=== PATIENT | male | born 1945 | race Caucasian/White ===

== ENCOUNTER 2023-10-11 05:57 | Inpatient (IN) | payer MEDICARE ==
[2023-10-11] MEDS ORDERED: MORPHINE SULFATE 4 MG/ML SYRINGE IV PRN (06:19)
[2023-10-11] MEDS ORDERED: ONDANSETRON 4 MG/2 ML VIAL IVP PRN (06:19)
[2023-10-11] MEDS ORDERED: NALOXONE 0.4 MG/ML 1 ML VIAL IV PRN (06:19)
[2023-10-11] MEDS ORDERED: AMPICILLIN-SULBACTAM 3 GM in SODIUM CHLORIDE 0.9% 100 ML IVPB STA (06:22)
--- NOTE | 2023-10-11 06:24 | ED ---
Recheck HPI - General Chief Complaint: Recheck/Abnormal Lab/Rx Stated Complaint: Free Air in Abdomen, COVID+ Time Seen by Provider: 10/11/23 06:03 Source: EMS, RN notes reviewed, old records reviewed Mode of arrival: EMS - History of Present Illness Initial Comments: This is a 77-year-old male accepted in transfer from [facility] evaluation of pneumoperitoneum likely related to perforation of diverticulitis patient was a presented to [facility] with abdominal pain MD Complaint: needs IV antibiotics, other (Patient needs surgical evaluation secondary to abdominal pain) Returns Today for: needs IV antibiotics, persistent/worsening pain related to initial visit Context: planned re-check Associated Symptoms: none Treatments Prior to Arrival: Given Antibiotics on, Given Pain Meds on - Related Data Home Medications Medication Instructions Recorded Confirmed Alfuzosin HCl [Alfuzosin HCl ER] 10 mg PO PC-LUNCH 10/11/23 10/11/23 Allergies Allergy/AdvReac Type Severity Reaction Status Date / Time No Known Allergies Allergy Verified 10/11/23 07:16 Review of Systems ROS Statement: Those systems with pertinent positive or pertinent negative responses have been documented in the HPI. ROS Other: All systems not noted in ROS Statement are negative. Past Medical History Past Medical History: No Reported History History of Any Multi-Drug Resistant Organisms: None Reported Past Surgical History: No Surgical Hx Reported Past Psychological History: No Psychological Hx Reported Smoking Status: Never smoker Past Alcohol Use History: None Reported Past Drug Use History: None Reported General Exam General appearance: alert, in no apparent distress Head exam: Present: atraumatic, normocephalic, normal inspection Eye exam: Present: normal appearance, PERRL, EOMI. Absent: scleral icterus, conjunctival injection, periorbital swelling ENT exam: Present: normal exam, mucous membranes moist Neck exam: Present: normal inspection. Absent: tenderness, meningismus, lymphadenopathy Respiratory exam: Present: normal lung sounds bilaterally. Absent: respiratory distress, wheezes, rales, rhonchi, stridor Cardiovascular Exam: Present: regular rate, normal rhythm, normal heart sounds. Absent: systolic murmur, diastolic murmur, rubs, gallop, clicks GI/Abdominal exam: Present: soft, normal bowel sounds. Absent: distended, tenderness, guarding, rebound, rigid Extremities exam: Present: normal inspection, full ROM, normal capillary refill. Absent: tenderness, pedal edema, joint swelling, calf tenderness Back exam: Present: normal inspection Neurological exam: Present: alert, oriented X3, CN II-XII intact Psychiatric exam: Present: normal affect, normal mood Skin exam: Present: warm, dry, intact, normal color. Absent: rash Course Vital Signs 10/11/23 10/11/23 10/11/23 06:00 07:49 08:00 Temperature 98.1 F 97.8 F Pulse Rate 77 73 73 Respiratory 18 20 16 Rate Blood Pressure 110/57 96/50 160/90 O2 Sat by Pulse 99 96 98 Oximetry 10/11/23 10/11/23 10/11/23 10:00 11:00 13:00 Temperature Pulse Rate 80 76 83 Respiratory 20 16 17 Rate Blood Pressure 140/80 134/61 129/59 O2 Sat by Pulse 98 98 96 Oximetry 10/11/23 14:20 Temperature Pulse Rate 78 Respiratory 18 Rate Blood Pressure 133/61 O2 Sat by Pulse 98 Oximetry - Reevaluation(s) Reevaluation #1: 10/11/23 06:40 Records reviewed Transferring paperwork is reviewed Reevaluation #2: 10/11/23 06:40 Patient has no complaints Reevaluation #3: 10/11/23 06:40 Patient informed results and questions answered Reevaluation #4: 10/11/23 06:24 Was pt. sent in by a medical professional or institution (Dr. PA, LAB SYSTEMS ANALYST, urgent care, hospital, or longterm...) When possible be specific @ -no Did you speak to anyone other than the patient for history (EMS, parent, family, police, friend...)? What history was obtained from this source @ -no Did you review nursing and triage notes (agree or disagree)? Why? @ -agree Are old charts reviewed (outside hosp., previous admission, EMS record, old EKG, old radiological studies, urgent care reports/EKG's, longterm records)? Rep ort findings @ -yes Differential Diagnosis (chest pain, altered mental status, abdominal pain women, abdominal pain men, vaginal bleeding, weakness, fever, dyspnea, syncope, headache, dizziness, GI bleed, back pain, seizure, CVA, palpatations, mental health, musculoskeletal)? @ -prior EKG interpreted by me (3pts min.). @ -yes X-rays interpreted by me (1pt min.). @ -no CT interpreted by me (1pt min.). @ -yes diverticulitis with pneumoperitoneum U/S interpreted by me (1pt. min.). @ -no What testing was considered but not performed or refused? (CT, X-rays, U/S, labs)? Why? @ -none What meds were considered but not given or refused? Why? @ -none Did you discuss the management of the patient with other professionals (professionals i.e. , PA, LAB SYSTEMS ANALYST, lab, RT, psych nurse, social service worker, weight loss consultant, teacher, driver license reviewing officer, family independence case manager)? Give summary @ -Yes case was discussed with general surgery Was smoking cessation discussed for >3mins.? @ -no Was critical care preformed (if so, how long)? @ -no Were there social determinants of health that impacted care today? How? (Homelessness, low income, unemployed, alcoholism, drug addiction, transportation, low edu. Level, literacy, decrease access to med. care, halfway, rehab)? @ -none Was there de-escalation of care discussed even if they declined (Discuss DNR or withdrawal of care, Hospice)? DNR status @ -no What co-morbidities impacted this encounter? (DM, HTN, Smoking, COPD, CAD, Cancer, CVA, ARF, Chemo, Hep., AIDS, mental health diagnosis, sleep apnea, morbid obesity)? @ -none Was patient admitted / discharged? Hospital course, mention meds given and route, prescriptions, significant lab abnormalities, going to OR and other pertinent info. @ - 77 male to the ER for evaluation, patient is accepted the transfer from [facility] for pneumoperitoneum likely related to diverticulitis, Patient was transferred for abdominal pain and surgical evaluation and treatment. Patient has pain control currently Admitted Undiagnosed new problem with uncertain prognosis? @ -no Drug Therapy requiring intensive monitoring for toxicity (Heparin, Nitro, Insulin, Cardizem)? @ -no Were any procedures done? @ -no Diagnosis/symptom? @ -Diverticulitis with perforation Acute, or Chronic, or Acute on Chronic? @ -Acute Uncomplicated (without systemic symptoms) or Complicated (systemic symptoms)? @ -Complicated Side effects of treatment? @ -no Exacerbation, Progression, or Severe Exacerbation? @ -exacerbation Poses a threat to life or bodily function? How? (Chest pain, USA, ND, pneumonia, PE, COPD, DKA, ARF, appy, cholecystitis, CVA, Diverticulitis, Homicidal, Suicidal, threat to staff... and all critical care pts) @ -yes with significant bowel infection Reevaluation #5: 10/11/23 06:41 Differential Abdominal Pain Men: Appendicitis, cholecystitis, diverticulosis, ischemic bowel, pancreatitis, hepatitis, UTI, gastroenteritis, AAA, incarcerated hernia, bowel obstruction, constipation, inflammatory bowel, hepatitis, peptic ulcer disease, splenic infarction, perforated viscus, testicular torsion, this is not meant to be an all-inclusive list - Consultations Consultation #1: spoke with Dr. Mario who agrees to accept patient for admission Medical Decision Making - Medical Decision Making 77 male to the ER for evaluation, patient is accepted the transfer from [facility] for pneumoperitoneum likely related to diverticulitis, Patient was transferred for abdominal pain and surgical evaluation and treatment. Patient has pain control currently - Lab Data Result diagrams: 10/11/23 08:31 10/11/23 08:31 Disposition Clinical Impression: Diverticulitis, Pneumoperitoneum, Abdominal pain Disposition: ADMITTED IP TO THIS HOSP Condition: Stable Is patient prescribed a controlled substance at d/c from ED?: No Time of Disposition: 06:30
[2023-10-11] MEDS: SODIUM CHLORIDE 0.9% 1,000 ML IV SCH ×2 (06:41→13:25)
[2023-10-11 08:31] VITALS: TEMP 97.8
[2023-10-11 09:03] LABS: ALT 18 U/L (4-49); AST 23 U/L (17-59); African American GFR (CKD) 81 (>60 ml/min/1.73 sqM); Albumin 3.3 g/dL (3.5-5.0); Albumin/Globulin Ratio 1.1; Alkaline Phosphatase 73 U/L (38-126); Anion Gap 13 mmol/L; Blood Urea Nitrogen 24 mg/dL (9-20); Calcium 8.6 mg/dL (8.4-10.2); Carbon Dioxide 22 mmol/L (22-30); Chloride 101 mmol/L (98-107); Glucose 114 mg/dL (74-99); Non-African American GFR(CKD) 70 (>60 ml/min/1.73 sqM); Potassium 4.2 mmol/L (3.5-5.1); Sodium 136 mmol/L (137-145); Total Bilirubin 0.9 mg/dL (0.2-1.3); Total Protein 6.3 g/dL (6.3-8.2)
[2023-10-11] MEDS ORDERED: IOPAMIDOL CONTRAST (ORAL USE) VIAL PO PRN (09:17)
[2023-10-11 09:21] LABS: HGB 11.1 gm/dL (13.0-17.5); MCH 28.2 pg (25.0-35.0); MCHC 33.7 g/dL (31.0-37.0); MCV 83.5 fL (80.0-100.0); Mean Platelet Volume 9.5; Platelet Count 229 k/uL (150-450); RBC 3.95 m/uL (4.30-5.90); RDW 15.4 % (11.5-15.5); WBC 20.2 k/uL (3.8-10.6)
[2023-10-11 09:45] LABS: Band Neutrophils % 11 %; Lymphocytes # (M) 1.01 k/uL (1.0-4.8); Metamyelocytes % 1 %; Monocytes # (M) 1.82 k/uL (0-1.0); Myelocytes % 1 %; Neutrophils % (M) 74 %; Nucleated Red Blood Cells 0 /100 WBC (0-0); Total Cells Counted 200
[2023-10-11 09:46] LABS: RBC Morphology Normal; Toxic Vacuolation Present
--- NOTE | 2023-10-11 11:39 | P.GSHP ---
History of Present Illness H&P Date: 10/11/23 CHIEF COMPLAINT: Abdominal pain HISTORY OF PRESENT ILLNESS: This is a 77-year-old male who presented with abdominal pain that has been present for about 2 weeks. Over the last day he has had increased and abdominal pain. He initially presented to [facility] and had computed tomography scan abdomen and pelvis that had shown pneumoperitoneum likely related to perforation of diverticulitis. Patient's abdomen is tense with pain in the upper abdomen. Patient reports that he had been vomiting a lot yesterday. He reports having bowel movements. He feels feverish with chills. He was diagnosed with cold on Saturday. He initially was rating his pain about a 7 out of 10. Computed tomography scan of chest and abdomen reviewed by surgeon and radiologist. There is air noted in the medias tinum. 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 Patient will need to be evaluated by cardiothoracic surgeon. PAST MEDICAL HISTORY: See below PAST SURGICAL HISTORY: See below MEDICATIONS: See below ALLERGIES: See below SOCIAL HISTORY: No illicit drug use. REVIEW OF SYSTEMS: CONSTITUTIONAL: Denies fever or chills. HEENT: Denies blurred vision, vision changes, or eye pain. Denies hemoptysis CARDIOVASCULAR: Denies chest pain or pressure. RESPIRATORY: No shortness of breath. GASTROINTESTINAL: See HPI for pertinent findings HEMATOLOGIC: Denies bleeding disorders. GENITOURINARY: Denies any blood in urine or increased urinary frequency. SKIN: Denies pruitis. Denies rash. PHYSICAL EXAM: VITAL SIGNS: Reviewed GENERAL: Well-developed in no acute distress. HEENT: No sclera icterus. Extraocular movements grossly intact. Moist buccal mucosa. Head is atraumatic, normocephalic. No nasal drainage. ABDOMEN: Abdomen tense with diffuse pain but more tender in the upper epigastri c and left lower abdomen. NEUROLOGIC: Alert and oriented. Cranial nerves II through XII grossly intact. LABORATORY DATA: WBC 20.2 hgb 11.1 and platelets 229 Sodium 136 potassium 4.2 creatinine 1.02 IMAGING: Computed tomography scan of chest and abdomen pending Abdominal x-ray pending ASSESSMENT: 1. 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 Pneumoperitoneum 3. Abdominal pain PLAN: -Patient had free air noted under the mediastinum on computed tomography scan of the chest. There are concerns for possible esophageal perforation. Patient will require higher level of care and to be evaluated by cardiothoracic surgeon. Working on transferring patient to [facility]. Physician Tur[employer] And Grounds Supervisor note has been reviewed by physician. Signing provider agrees with the documented findings, assessment, and plan of care. I have personally seen and examined the patient, reviewed the TEXTILE CLOTHING AND FOOTWEAR MECHANIC /PAs history, exam and MDM and agree with the assessment and plan as written. Based on total visit time, I have performed more than 50% of the visit. As above: Patient transferred for initially suspected diverticulitis with perforation. Reviewed films with our radiologist here locally this morning. Initial CAT scan abdomen shows the majority of the air is in the left upper quadrant epigastric region. There is a larger than anticipated collection of air in the mediastinum. Following that a CT of the chest and abdomen with oral contrast was ordered to evaluate for extravasation. None was seen. Air was noted by radiology extending adjacent to the esophagus up towards the shauna. The patient does describe significant vomiting yesterday. I'm concerned about the possibility of esophageal perforation and would prefer to have thoracic surgery backup. This may end up representing a proximal perforated gastric ulcer. Other CAT scan findings including suspicious iliac chain adenopathy and lytic bone lesions noted as well. These findings were discussed with the patient and also his by phone. This case was discussed with [facility] Dr. Blank who accepted transfer for higher level of care. Arrangements are being finalized for transfer at this time. Continue antibiotics. Past Medical History Past Medical History: No Reported History History of Any Multi-Drug Resistant Organisms: None Reported Past Surgical History: No Surgical Hx Reported Past Psychological History: No Psychological Hx Reported Smoking Status: Never smoker Past Alcohol Use History: None Reported Past Drug Use History: None Reported Medications and Allergies Home Medications Medication Instructions Recorded Confirmed Type Alfuzosin HCl [Alfuzosin HCl ER] 10 mg PO PC-LUNCH 10/11/23 10/11/23 History Allergies Allergy/AdvReac Type Severity Reaction Status Date / Time No Known Allergies Allergy Verified 10/11/23 07:16 Surgical - Exam Vital Signs Temp Pulse Resp BP Pulse Ox 98.1 F 77 18 110/57 99 10/11/23 06:00 10/11/23 06:00 10/11/23 06:00 10/11/23 06:00 10/11/23 06:00 Results - Labs 10/11/23 08:31 10/11/23 08:31 Abnormal Lab Results - Last 24 Hours (Table) 10/11/23 12 Range/Units 08:31 08:31 WBC 20.2 H (3.8-10.6) k/uL RBC 3.95 L (4.30-5.90) m/uL Hgb 11.1 L (13.0-17.5) gm/dL Hct 33.0 L (39.0-53.0) % Neutrophils # (Manual) 17.10 H (1.3-7.7) k/uL Monocytes # (Manual) 1.82 H (0-1.0) k/uL Metamyelocytes # (Man) 0.20 H (0) k/uL Myelocytes # (Manual) 0.20 H (0) k/uL Sodium 136 L (137-145) mmol/L BUN 24 H (9-20) mg/dL Glucose 114 H (74-99) mg/dL Albumin 3.3 L (3.5-5.0) g/dL Diabetes panel 10/11/23 Range/Units 08:31 Sodium 136 L (137-145) mmol/L Potassium 4.2 (3.5-5.1) mmol/L Chloride 101 (98-107) mmol/L Carbon Dioxide 22 (22-30) mmol/L BUN 24 H (9-20) mg/dL Creatinine 1.02 (0.66-1.25) mg/dL Glucose 114 H (74-99) mg/dL Calcium 8.6 (8.4-10.2) mg/dL AST 23 (17-59) U/L ALT 18 (4-49) U/L Alkaline Phosphatase 73 (38-126) U/L Total Protein 6.3 (6.3-8.2) g/dL Albumin 3.3 L (3.5-5.0) g/dL Calcium panel 10/11/23 Range/Units 08:31 Calcium 8.6 (8.4-10.2) mg/dL Albumin 3.3 L (3.5-5.0) g/dL Pituitary panel 10/11/23 Range/Units 08:31 Sodium 136 L (137-145) mmol/L Potassium 4.2 (3.5-5.1) mmol/L Chloride 101 (98-107) mmol/L Carbon Dioxide 22 (22-30) mmol/L BUN 24 H (9-20) mg/dL Creatinine 1.02 (0.66-1.25) mg/dL Glucose 114 H (74-99) mg/dL Calcium 8.6 (8.4-10.2) mg/dL Adrenal panel 10/11/23 Range/Units 08:31 Sodium 136 L (137-145) mmol/L Potassium 4.2 (3.5-5.1) mmol/L Chloride 101 (98-107) mmol/L Carbon Dioxide 22 (22-30) mmol/L BUN 24 H (9-20) mg/dL Creatinine 1.02 (0.66-1.25) mg/dL Glucose 114 H (74-99) mg/dL Calcium 8.6 (8.4-10.2) mg/dL Total Bilirubin 0.9 (0.2-1.3) mg/dL AST 23 (17-59) U/L ALT 18 (4-49) U/L Alkaline Phosphatase 73 (38-126) U/L Total Protein 6.3 (6.3-8.2) g/dL Albumin 3.3 L (3.5-5.0) g/dL
[2023-10-11] MEDS ORDERED: AMPICILLIN-SULBACTAM 3 GM in SODIUM CHLORIDE 0.9% 100 ML IVPB SCH (12:00)
--- NOTE | 2023-10-11 12:03 | XR ---
EXAMINATION TYPE: XR abdomen 2V DATE OF EXAM: 10/11/2023 COMPARISON: Outside CT 10/11/2023 HISTORY: 77-year-old male with abdominal pain FINDINGS: Lung bases are clear. Small amount of free air below the left hemidiaphragm. Excreting contrast within the renal collecting systems and right ureter as well as the bladder. Some surgical clips an the region of the prostate gland. Marked abnormal soft tissue in the region of the prostate gland on outside CT. Correlate to exclude prostate cancer recurrence. No dilated small bowel. No significant stool burden. IMPRESSION: 1. Small amount of free air below the left hemidiaphragm. Findings suggest gastric perforation as see n on outside CT. 2. Surgical clips in the region of the prostate gland. Given the prominent abnormal soft tissue here on the patient's outside CT, correlate to exclude recurrent prostate cancer.
--- NOTE | 2023-10-11 13:42 | P.DS ---
Providers Date of admission: 10/11/23 06:19 Expected date of discharge: 10/11/23 Attending physician: Juan Diego Mario Consults: 10/11/23 06:19 Consult Physician Routine Consulting Provider: Talat Robles Consult Reason/Comments: [employer] Do you want consulting provider notified?: Yes Primary care physician: Stated None Hospital Course: Discharge diagnosis 1. 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 Pneumoperitoneum 3. Abdominal pain Hospital course This is a 77-year-old male who presented with abdominal pain that has been present for about 2 weeks. Over the last day he has had increased and abdominal pain. He initially presented to [facility] and had computed tomography scan abdomen and pelvis that had shown pneumoperitoneum likely related to perforation of diverticulitis. Patient's abdomen is tense with pain in the upper abdomen. Patient reports that he had been vomiting a lot yesterday. He reports having bowel movements. He feels feverish with chills. He was diagnosed with cold on Saturday. He initially was rating his pain about a 7 out of 10. Computed tomography scan of chest and abdomen reviewed by surgeon and radiologist. There is air noted in the mediastinum. 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 There are concerns for possible esophageal perforation. Patient will require higher level of care and to be evaluated by cardiothoracic surgeon. Patient will be transferred to [facility] for higher level of care and to be evaluated by cardiothoracic surgeon. Physician Tire Mounter note has been reviewed by physician. Signing provider agrees with the documented findings, assessment, and plan of care. Patient Condition at Discharge: Stable Plan - Discharge Summary New Discharge Prescriptions: No Action Alfuzosin HCl [Alfuzosin HCl ER] 10 mg PO PC-LUNCH Discharge Medication List Alfuzosin HCl [Alfuzosin HCl ER] 10 mg PO PC-LUNCH 10/11/23 [History] Follow up Appointment(s)/Referral(s): None,Stated [Primary Care Provider] - 1-2 days Activity/Diet/Wound Care/Special Instructions: Patient being transferred to [facility] Discharge Disposition: OTHER INSTITUTION NOT DEFINED
[2023-10-11 14:39] VITALS: BP 133/61; PULSE 78; RESP 18
--- NOTE | 2023-10-11 16:06 | CT ---
EXAMINATION TYPE: CT chest abdomen wo con CT DLP: 489.2 mGycm, Automated exposure control for dose reduction was used. DATE OF EXAM: 10/11/2023 10:11 AM COMPARISON: None. CLINICAL INDICATION:Male, 77 years old with history of Evaluate possible gastroesophageal perforation ; [facility], ESOPHAGEAL PERF? TECHNIQUE: Axial images through the chest and abdomen were obtained without contrast. Oral contrast w as given. Two-dimensional coronal and sagittal reconstructions were obtained. Contrast used: mL of , Oral contrast used: with Oral Contrast Findings: CHEST: LUNGS/ PLEURA: Mild scarring/senescent changes in the lungs. No acute infiltrate, pleural effusion, o r pneumothorax. AIRWAY: Central airways are patent. HEART/VASCULATURE: Heart size upper limits of normal. Calcifications of the aortic valve, aorta, shereen nary arteries..Moderate calcification of the aorta and major branches. No pericardial effusion. MEDIASTINUM: Mildly enlarged lymph nodes in the AP window, up to 16 mm. Other nonenlarged nodes are a lso seen. To the right of the distal esophagus, there is a gas and fluid containing structure seen me asuring 3.2 x 2.3 cm axially and extends 4.5 cm craniocaudally, with suggestion of a few additional s cattered tiny foci of pneumomediastinum. No abnormal contrast is seen in the mediastinum. SOFT TISSUES/LYMPH NODES: Unremarkable. LOWER NECK: No significant findings. ABDOMEN: Limitation by the delayed postcontrast scan obtained. ABDOMEN LIVER: Unremarkable GALLBLADDER AND BILE DUCTS: Unremarkable. PANCREAS: Unremarkable. SPLEEN: Unremarkable. ADRENAL GLANDS: Unremarkable. KIDNEYS: Kidneys are both excreting contrast. No hydronephrosis on the left. There is a prominent rig ht extrarenal pelvis with relatively abrupt decrease in caliber noted at the ureteropelvic junction, which could indicate UPJ stenosis. Within a dilated lower pole calyx, there is a radiodense focus see n within the contrast measuring about 7.2 mm, concerning for nonobstructing calcification. STOMACH AND BOWEL: Mild thickening of the distal esophagus, and probably the stomach. This could be a t least in part due to incomplete distention. There is contrast seen within the stomach and some of t he visualized small bowel loops without evidence of obstruction. PERITONEUM/RETROPERITONEUM: Multiple small foci of pneumoperitoneum, adjacent to the liver and IVC, a nd several throughout the peritoneal fat in the abdomen. Mild diffuse hazy appearance of the abdomina l mesentery, may represent edema. VASCULATURE: Moderate vascular calcification of the abdominal aorta and branches, no evidence of AAA. MUSCULOSKELETAL (chest and abdomen): Moderate degenerative changes of the SI joints and lumbar spine. This appears most progressed at L4-L5 where predominantly disc osteophyte complex causes mild/modera te canal and neural foraminal stenoses. Lytic lesion at T3 appears to replace approximately two thirds of the vertebral body without evidence of vertebral body height loss. Partially seen lytic lesion involving the right C3 vertebral body and pedicle concerning for metastasis. Also small ovoid lesion near the left lamina and base of spinous process at C4. Several small lytic foci appear present throughout the lumbar spine, some which could be degenerative but others have the appearance of lytic lesions. There is a small lytic lesion in the mid body of the sternum. Lytic lesion right iliac wing measures 1.5 cm. Small lytic lesions are seen in the right scapular wing and near the left bony glenoid. LYMPH NODES: No gross evidence for lymphadenopathy. SOFT TISSUE/ABDOMINAL WALL: Unremarkable IMPRESSION: 1. Gas and fluid containing collection outside the distal esophagus towards the right, concerning fo r contained perforation. 2. A few small foci of additional pneumomediastinum are also present, and there is some pneumoperito neum in the upper abdomen, likely related to tracking from this. 3. Diffuse haziness of the abdominal mesentery suggestive of edema. Correlate clinically for possibl e peritonitis. 4. Multiple lytic osseous lesions, primary considerations include metastases and multiple myeloma.
--- NOTE | 2023-10-12 21:40 | P.CONS ---
History of Present Illness - Reason for Consult Consult date: 10/11/23 Medical management - Chief Complaint Abdominal pain - History of Present Illness 77-year-old male who presented with abdominal pain that has been present for about 2 weeks. Over the last day he has had increased and abdominal pain. He initially presented to [facility] and had computed tomography scan abdomen and pelvis that had shown pneumoperitoneum likely related to perforation of diverticulitis. Patient's abdomen is tense with pain in the upper abdomen. Patient reports that he had been vomiting a lot yesterday. He reports having bowel movements. He feels feverish with chills. He was diagnosed with cold on Saturday. He initially was rating his pain about a 7 out of 10. Computed tomography scan of chest and abdomen reviewed by surgeon and radiologist. There is air noted in the mediastinum. 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 Patient will need to be evaluated by cardiothoracic surgeon. Patient has been evaluated by surgery and is recommended transferred to her tertiary care center for evaluation by thoracic surgery Review of Systems REVIEW OF SYSTEMS: CONSTITUTIONAL: No fever, no malaise, no fatigue. HEENT: No recent visual problems or hearing problems. Denied any sore throat. CARDIOVASCULAR: No chest pain, orthopnea, PND, no palpitations, no syncope. PULMONARY: No shortness of breath, no cough, no hemoptysis. GASTROINTESTINAL: No diarrhea, no nausea, no vomiting, no abdominal pain. NEUROLOGICAL: No headaches, no weakness, no numbness. HEMATOLOGICAL: Denies any bleeding or petechiae. GENITOURINARY: Denies any burning micturition, frequency, or urgency. MUSCULOSKELETAL/RHEUMATOLOGICAL: Denies any joint pain, swelling, or any muscle pain. ENDOCRINE: Denies any polyuria or polydipsia. The rest of the 14-point review of systems is negative. Past Medical History Past Medical History: No Reported History History of Any Multi-Drug Resistant Organisms: None Reported Past Surgical History: No Surgical Hx Reported Past Psychological History: No Psychological Hx Reported Smoking Status: Never smoker Past Alcohol Use History: None Reported Past Drug Use History: None Reported Medications and Allergies Home Medications Medication Instructions Recorded Confirmed Type Alfuzosin HCl [Alfuzosin HCl ER] 10 mg PO PC-LUNCH 10/11/23 10/11/23 History Allergies Allergy/AdvReac Type Severity Reaction Status Date / Time No Known Allergies Allergy Verified 10/11/23 07:16 Physical Exam Vitals: Vital Signs Temp Pulse Resp BP Pulse Ox 10/11/23 11:00 76 16 134/61 98 10/11/23 10:00 80 20 140/80 98 10/11/23 08:00 97.8 F 73 16 160/90 98 10/11/23 07:49 73 20 96/50 96 10/11/23 06:00 98.1 F 77 18 110/57 99 Intake and Output 10/10/23 10/11/23 10/11/23 22:59 06:59 14:59 Other: Weight 83.007 kg General appearance: alert, in no apparent distress Head exam: Present: atraumatic, normocephalic, normal inspection Eye exam: Present: normal appearance, PERRL, EOMI. Absent: scleral icterus, conjunctival injection, periorbital swelling ENT exam: Present: normal exam, mucous membranes moist Neck exam: Present: normal inspection. Absent: tenderness, meningismus, lymphadenopathy Respiratory exam: Present: normal lung sounds bilaterally. Absent: respiratory distress, wheezes, rales, rhonchi, stridor Cardiovascular Exam: Present: regular rate, normal rhythm, normal heart sounds. Absent: systolic murmur, diastolic murmur, rubs, gallop, clicks GI/Abdominal exam: Present: soft, normal bowel sounds. Absent: distended, tenderness, guarding, rebound, rigid Extremities exam: Present: normal inspection, full ROM, normal capillary refill. Absent: tenderness, pedal edema, joint swelling, calf tenderness Neurological exam: Present: alert, oriented X3, CN II-XII intact Skin exam: Present: warm, dry, intact, normal color. Absent: rash Results CBC & Chem 7: 10/11/23 08:31 10/11/23 08:31 Labs: Abnormal Lab Results - Last 24 Hours (Table) 10/11/23 10/11/23 Range/Units 08:31 08:31 WBC 20.2 H (3.8-10.6) k/uL RBC 3.95 L (4.30-5.90) m/uL Hgb 11.1 L (13.0-17.5) gm/dL Hct 33.0 L (39.0-53.0) % Neutrophils # (Manual) 17.10 H (1.3-7.7) k/uL Monocytes # (Manual) 1.82 H (0-1.0) k/uL Metamyelocytes # (Man) 0.20 H (0) k/uL Myelocytes # (Manual) 0.20 H (0) k/uL Sodium 136 L (137-145) mmol/L BUN 24 H (9-20) mg/dL Glucose 114 H (74-99) mg/dL Albumin 3.3 L (3.5-5.0) g/dL Assessment and Plan Assessment: 1. Abdominal pain/pneumoperitoneum 2. 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 Marked leukocytosis/sepsis 4. Mild AK I -- CT of the chest reveals free air under mediastinotomy raising concern for possible esophageal perforation -- Patient was initially suspected acute diverticulitis with perforation; initial CT of the abdomen revealed air in the left upper quadrant region; follow-up CT of the chest and abdomen with oral contrast revealed air extending adjacent esophagus raising concern for possible esophageal perforation; surgery is recommending patient be transferred to a tertiary care center for evaluation by thoracic surgery
== END 2023-10-11 15:20 | disposition short-term general hospital (02) | DRG 368 ==
LOC: EC 05:57 → 4SSUR 06:19
PROVIDERS: ADMIT Surgery; ATTEND Surgery
DX: K22.3 Perforation of esophagus (principal); U07.1 COVID-19; N17.9 Acute kidney failure, unspecified; K66.8 Other specified disorders of peritoneum; D72.829 Elevated white blood cell count, unspecified; Z85.46 Personal history of malignant neoplasm of prostate
CPT/HCPCS: 71250; 74019; 74150; 80053; 85025; 96365; 96366; 96375; 99285; 99291